=== PATIENT | male | born 1970 | race Caucasian/White ===

== ENCOUNTER → 2018-08-29 10:13 | Outpatient (CLI) | payer OTHER, SELFPAY ==
--- NOTE | 2018-08-29 | DI.NM.S_ITS ---
PROCEDURE: NM BONE 3 PHASE RADIOPHARMACEUTICAL: 21.0 mCi Tc-99m MDP IV. INDICATIONS: STRESS FRACTURE RIGHT FOOT TECHNIQUE: Multiple bone scintigrams were obtained after intravenous injection of Tc-99m MDP, including flow, blood pool, and delayed images centered to the region of interest. COMPARISON: [facility] Outside Film, CR, XR FOOT 3+ VIEWS RIGHT, 08/12/2018, 13:59. FINDINGS: A triple phase bone scan was obtained including flow, blood pool and delayed images of the ankles and feet. There is increased vascular activity in the mid right foot on flow and blood pool images around the bases of the third and fourth metatarsals. Delayed images demonstrate focal increased uptake at the bases of the third and fourth metatarsals. IMPRESSION: There is increased flow, blood pool and delayed activity at the base of the third and fourth metatarsals there is scintigraphic findings are nonspecific. Differential diagnoses include infection and acute stress fractures. Recommend clinical correlation. If clinically indicated, MRI may be helpful. Dictated by: Josie Garcia M.D. on 08/29/2018 at 16:29 Approved by: Josie Garcia M.D. on 08/29/2018 at 17:50
== END ==
PROVIDERS: PCP Family Medicine; Visit Provider Podiatrist
DX: M84.374A Stress fracture, right foot, initial encounter for fracture (principal)
CPT/HCPCS: 78315; A9503

== ENCOUNTER → 2020-07-08 13:37 | Outpatient (CLI) | payer OTHER, SELFPAY ==
[2020-07-08 15:16] LABS: COVID19 -Nasal RAPID Negative (Negative)
== END ==
PROVIDERS: PCP Family Medicine; Visit Provider Physician Assistant
DX: Z20.822 Contact with and (suspected) exposure to COVID-19 (principal)
CPT/HCPCS: 87635

== ENCOUNTER 2020-07-11 06:05 | Day surgery (SDC) | payer OTHER, SELFPAY ==
[2020-07-11] VITALS (20 sets, daily range): BP systolic 129–152; BP diastolic 67–99; PULSE 16–98; RESP 10–18; TEMP 35.8–37.1; O2SAT 91–97; BMI 29.2
[2020-07-11] MEDS: LACTATED RINGERS 1,000 ML 42 ML IV (07:10)
[2020-07-11] MEDS: ACETAMINOPHEN 325 MG TABLET 975 MG PO (07:17)
--- NOTE | 2020-07-11 07:19 | PM.PREOP ---
Pre-operative Note COVID-19 COVID-19 status: Negative Result date/Date tested (Pos, Neg/Pending): 07/08/20 Interval Note History & Physical reviewed/Exam performed by Physician: Yes Changes to H&P: No
[2020-07-11] MEDS: CEFAZOLIN 2 GM/100 ML FROZ.PIGGY IV ×3 (07:49→23:17)
--- NOTE | 2020-07-11 08:00 | DI.RAD.S_ITS ---
PROCEDURE: XR CERVICAL SPINE 2V OR 3V INDICATIONS: C5-6 ACDF TECHNIQUE: 2 intraoperative fluoroscopic view(s) of the cervical spine were acquired. COMPARISON: None. FINDINGS: Under fluoroscopic images of cervical spine shows anterior fusion of C5 and C6 vertebral bodies with intervertebral spacer placement. Straightening of normal cervical lordosis is seen. IMPRESSION: Fluoro guidance was provided intraoperatively for anterior fusion of C5-6 vertebral bodies. Dictated by: Joel Marti M.D. on 07/11/2020 at 9:40 Approved by: Joel Marti M.D. on 07/11/2020 at 9:41
--- NOTE | 2020-07-11 08:13 | SUR.OPER ---
Supine, head on gel donut. Arms padded with gel pads, tucked at sides, towel roll under shoulders. Safety belt at thigh. Legs uncrossed.
[2020-07-11] MEDS: BUPIVACAINE 0.25% W/ EPI (PF) 10 ML VIAL INJ (08:37)
[2020-07-11] MEDS: THROMBIN (RECOMBINANT) 5,000 UNIT VIAL 5000 UNIT TOP (08:38)
[2020-07-11] MEDS: SODIUM CHLORIDE 0.9% 1,000 ML, GENTAMICIN 80 MG IRR (08:38)
--- NOTE | 2020-07-11 08:47 | P.OP_ITS ---
Operative Date/Time/Diagnoses Date of procedure: 07/11/20 Time of procedure: 08:47 Pre-op diagnosis: Cervical stenosis with myelopathy Post-op diagnosis: same Procedure & Clinicians Procedure: C5-6 ACDF with cage Iliac crest bone graft aspirate Use of microscope Same procedure as scheduled: Yes Indications: [age] year old male with intractable pain from a cervical disc herniation. They had failed conservative management and requested operative intervention. Risks and benefits of surgery were discussed and appropriate consents were obtained. Surgeon: Mauri Maldonado Home Energy Inspector: Ann Abbasi Anesthesia Type: General Operative Notes Findings: None Closure Type: primary Specimen(s): none sent Prosthetic devices, grafts, tissues, transplants, or devices: Amber ALFREDITO-C Estimated Blood Loss (mL): 10 Blood products transfused: none Procedure in detail: Patient was brought to the operating room and intubated on the table. A time-out was performed. Preoperative antibiotics were given. The neck was prepped and draped in the standard sterile fashion. Using a skin fold, we made a 3 cm oblique incision on the left side. We used Bovie to go through the platysma and then did a standard anterolateral blunt dissection down to the precervical fascia. Fascia was nicked and elevated up. A marker was placed and x-ray was taken for localization. We then subperiosteally elevated up the longus colli muscles. Self-retaining retractors were placed. [place] pins were placed. We then brought in the microscope. A scalpel used to perform an annulotomy. We then used a combination of pituitaries and curettes and Kerrison to perform a complete anterior diskectomy at C5-6. We used the bur to take down the posterior osteophytes. We took down the PLL and used Kerrison to remove any posterior disc material and osteophytes. At the end we could from the nerve hook cephalad caudally and out the foramen and everything was opened. A small stab incision was made over the left anterior iliac crest. A Jamshidi needle was advanced into the pelvis and 2 mL of bone marrow was aspirated. We then used the trials. We then packed a 14 x 17 x 6 mm ALFREDITO-C cage with Primagen bone graft and the iliac crest harvest. The cage was placed under fluoroscopic guidance. We then placed our two locking plates. The self- retaining retractors and [place] pins were removed and final x-rays taken. The wound was irrigated. There was no bleeding. The carotid was beating nicely. The platysma was closed. The superficial was closed. The skin was closed. A sterile dressing was placed. They were then extubated and brought to recovery room with no complications. Complications: none Post-operative Condition: stable Disposition: PACU Plan for aftercare: Admit overnight. Up with physical therapy. Soft collar for comfort.
[2020-07-11] MEDS: ONDANSETRON 4 MG/2 ML INJ IV (09:22)
[2020-07-11] MEDS: OXYCODONE IR 5 MG TABLET PO ×2 (09:24→23:17)
[2020-07-11] MEDS: OXYCODONE IR 5 MG TABLET 10 MG PO ×3 (10:13→15:36)
[2020-07-11] MEDS: CELECOXIB 200 MG CAPSULE PO ×2 (10:14→20:05)
[2020-07-11] MEDS: ACETAMINOPHEN 325 MG TABLET 650 MG PO (10:14)
[2020-07-11] MEDS: hydrOXYzine pamoate 25 MG CAPSULE PO ×2 (10:14→23:17)
[2020-07-11] MEDS: HYDROMORPHONE 0.5 MG INJ IV ×4 (10:34→16:51)
[2020-07-11] MEDS: CELECOXIB 200 MG CAPSULE 400 MG PO (11:17)
[2020-07-11] MEDS: DOCUSATE 100 MG CAPSULE PO ×2 (11:17→20:05)
[2020-07-11] MEDS: LACTATED RINGERS 1,000 ML 125 ML IV ×2 (11:18→17:45)
--- NOTE | 2020-07-11 14:30 | PT.IIE ---
Current Diagnoses Other spondylosis with myelopathy, cervical region (07/11/20) Spinal stenosis, cervical region (07/11/20) Surgery Performed Operation Date: 07/11/20 07:45 Actual Procedures p C56 anterior cervical discectomy & fusion w. bone graft(Not Applicable) - Mauri Maldonado MD Surgical History (Last Updated 07/08/20 @ 07:39 by Flor Fabian, RN) H/O right knee surgery History of appendectomy History of tonsillectomy Status post right foot surgery Medical History (Last Updated 07/09/20 @ 09:13 by Flor Fabian, RN) ADHD Alcohol dependence Allergic rhinitis Cervical spondylosis with myelopathy Cervical stenosis of spine Decreased libido Depression Fracture Frequent headaches Hypotestosteronism Rotator cuff syndrome Physical Therapy Inpatient Evaluation/Re-Eval M1 PT/OT-IP Prior Functional Status Start: 07/11/20 12:16 Freq: NEEDED Status: Active Protocol: Document 07/11/20 14:28 AW (Rec: 07/11/20 14:38 AW [id number]) Medical Review Prior Functional Status Medical History Reviewed Yes Communication WNL. Pt is an effective verbal communicator. Mobility and Gait Independent without AD. 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 Activities of Daily Living and IADL's Independent with all I/ADL's. 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 Social History Household Members significant other Living Arrangements House Number of Floors (Floors) Two Floors Number of Stairs To Enter/Railing? 5 JESSICA with wide bilateral rails. 2 steps + landing + 12 steps up to bedroom level with left rail ascending. 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 She will be available as needed to assist at discharge. M2 PT-IP Current Condition Start: 07/11/20 12:16 Freq: NEEDED Status: Active Protocol: Document 07/11/20 14:28 AW (Rec: 07/11/20 14:56 AW [id number]) Physical Therapy Current Condition Current Condition Evaluation Date 07/11/20 Treatment Diagnosis cervical myelopathy s/p C5-6 ACDF; impaired mobility and gait Onset Date 07/11/20 Precautions Cervical Spine Precautions Soft Collar for Comfort,No Heavy Lifting,Log Roll M3 PT-IP Subjective Start: 07/11/20 12:16 Freq: NEEDED Status: Active Protocol: Document 07/11/20 14:28 AW (Rec: 07/11/20 14:56 AW [id number]) Subjective Physical Therapy Visit Type Type Initial Evaluation Visit Start Time 14:02 Visit Stop Time 14:28 Total Visit Minutes 26 Notes Pt's partner, Loli, present throughout evaluation. Number of DERMATOLOGY PHYSICIAN Visits 0 Physical Therapy Visit Comments Patient Comments Pt is willing to participate with PT Patient Goals Return to normal activity Therapy Pain Assessment Pain When Pain Assessed During Mobility Pain Present Pain Present Pain Reported Location headache Intensity 3 Scale Used Numeric (0 - 10) Pain Management Techniques Timing of Activity with Medications Neck Intensity 5 Scale Used Numeric (0 - 10) Pain Management Techniques Timing of Activity with Medications M4 PT-IP Mobility and Gait Start: 07/11/20 12:16 Freq: NEEDED Status: Active Protocol: Document 07/11/20 14:28 AW (Rec: 07/11/20 14:56 AW [id number]) PT-Bed Mobility Assessment Rolling Type of Rolling Log Rolling,Roll to Right Supine to Sit Supine to Sit Standby Assistance Scooting Scooting to Edge of Bed Standby Assistance PT-Transfer Assessment Sit to and From Stand Sit to and from Stand Contact Guard Assistance,Use of Upper Extremities Equipment Transfer Assistive Device None,Gait Belt Orthotic/Prosthetic Devices or Brace: Yes Transfers Transfer Destination Bed,Toilet Transfer Technique Stand Step Pivot Transfer Ability Level of Assist Contact Guard Assistance,Use of Upper Extremities Comments Mobility Comments Pt completed log roll to his right side with cues for sequencing SBA. SL to sit required CGA and pt was able to sit EOB with complaint of mild lightheadedness. BP was stable 120's/low 100's. Pt stood from the bed CGA due to initial unsteadiness and ambulated to the sink CGA. He then ambulated to the toilet where he transferred to and from with use of left-sided grab bar. He then ambulated back to the right side of the bed CGA, completing reverse log roll to supine CGA. Gait Assessment Gait Gait Assistance Required: Contact Guard Assist Distance (Feet) 30 Assistive Devices Assistive Device None,Gait Belt Orthotic/Prosthetic Devices or Brace: Yes Gait Deviations General Gait Pattern Antalgic,Decreased Stride Length,Decreased Feet Clearance Factors Limiting Gait Function Factors Limiting Gait Function Pain,Poor Balance,Poor Safety Awareness Comments Gait Comments Pt was slightly impulsive and unsteady on his feet requiring CGA. Anticipate pt will be able to ambulate SBA or IND at next session depending on pain control. Stair Climbing Assessment Comments Stair Climbing Comments Not assessed. PT-Balance Assessment Sitting Balance and Reactions Static Sitting Balance Ability Good Dynamic Sitting Balance Ability Good Standing Balance and Reactions Static Standing Balance Ability Good Dynamic Standing Balance Ability Good Device Used no AD M5 PT-IP Objective Assessments Start: 07/11/20 12:16 Freq: NEEDED Status: Active Protocol: Document 07/11/20 14:28 AW (Rec: 07/11/20 15:20 AW [id number]) Orientation Orientation/Cognition Level of Alertness Alert Orientation Name,Day of Week,Place, Situation Language Function Ability No Deficits Noted Safety Awareness Decreased Safety Awareness Memory Description No Deficits Noted Gross Range of Motion Upper Extremity ROM Assessment Within Functional Limits Lower Extremity ROM Assessment Within Functional Limits Strength Upper Extremity Strength Assessment Within Functional Limits Lower Extremity Strength Assessment Within Functional Limits Comments Strength Comments BUE grossly 4+/5 Sensation Assessment Sensation Gross Sensation WNL Comments Sensation Comments Pt denies numbess in upper extremities M6 PT-IP Treatment Start: 07/11/20 12:16 Freq: NEEDED Status: Active Protocol: Document 07/11/20 14:28 AW (Rec: 07/11/20 15:20 AW [id number]) Physical Therapy Treatment Exercises Exercises Shoulder Flexion,Elbow Flexion /Extension,Wrist ROM,Hand ROM Education Education Provided Precautions,Weight Bearing Status,Post-Op Packet,Safety Brace Education [place],Patient, Caregiver Other Treatments Other Treatment Performed Provided education on role of PT, plan of care, post-op precautions, and handout on swallow concerns. M7 PT-IP Assessment and Plan Start: 07/11/20 12:16 Freq: NEEDED Status: Active Protocol: Document 07/11/20 14:28 AW (Rec: 07/11/20 15:20 AW [id number]) PT Summary Assessment and Plan Potential Rehabilitation Potential Excellent Status of Condition at Evaluation Evolving Summary Impairments Pain,ROM,Strength,Balance, Sensation,Bed Mobility, Transfers,Gait Assessment Summary Willem is a 49 yo man seen for PT evaluation on POD0 following C5-6 ACDF. 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 On evaluation, pt was vaguely lightheaded and limited by neck and headache pain. He required SBA to CGA with all mobilities due to unsteadiness in gait. PT anticipates he will be safe to discharge home with assist once medically cleared and after completing stair training. Goals Bed Mobility Goal Independent Transfer Goal Independent Gait Goal Independent Gait Distance 200 Other Goals - up/down 12 steps with left rail ascending SBA Days to Meet Goals 2 Frequency of Treatment Frequency Of Treatment Twice a Day Treatment Plan Physical Therapy Treatment Plan Bed Mobility Training,Transfer Training,Gait Training, Therapeutic Exercise,Post Op Education,Discharge Planning, Hot or Cold Pack Other Recommendations and Next Treatment review precautions; Focus independent gait; stair training Recommendations To Nursing Amount of Assist Needed Standby Assistance Discharge Recommendations PT Discharge Recommendations Home with Assistance Transportation Needs at Discharge Private Vehicle
--- NOTE | 2020-07-11 15:22 | PC.NURSE ---
Severe pain to neck and headache; PO and IV pain meds, reassessed at moderate 5/10 pain; c/m/s to BLUEs present; drsg to anterior neck c/d/i and iliac crest drsg c/d/i; ls clear; IS 4000; sba to bathroom
--- NOTE | 2020-07-11 16:43 | OT.IPNOTE ---
Attempted to see pt for OT eval, pt states not feeling well and preferring to do OT eval tomorrow morning.
[2020-07-11] MEDS: OXYCODONE IR 5 MG TABLET 15 MG PO (18:34)
[2020-07-11] MEDS: TRAZODONE 50 MG TABLET PO (20:05)
[2020-07-11] MEDS: GABAPENTIN 300 MG CAPSULE PO (20:05)
[2020-07-11] MEDS: SENNOSIDES 8.6 MG TABLET 17.2 MG PO (20:05)
[2020-07-12 00:20] VITALS: BP 136/89; PULSE 90; RESP 16; TEMP 36.9; O2SAT 91
--- NOTE | 2020-07-12 01:29 | PC.NURSE ---
Addendum entered by Liliya Keller R.N. 07/12/20 05:10: Complains of 3/10 headache; medicated with Tylenol. Addendum entered by Liliya Keller R.N. 07/12/20 04:34: Complains that pain is worsening so medicated with additional Oxycodone and provided popscicle. Addendum entered by Liliya Keller R.N. 07/12/20 03:30: Patient able to sleep last couple hours. Now states pain is 4/10 so medicated with Oxycodone + Vistaril but declined ice pack. Original Note: 2334 patient seen and assessed. Is alert and oriented. Breath sounds CTA with RA sat of 91%. HRR. Denies nausea. BT present and is passing flatus. Voiding per urinal; denies dysuria, frequency or urgency. Able to move self in bed. Up to bathroom with SBA. Dressing to anterior neck and left iliac crest CDI. Wearing soft collar for comfort. Complains of 5/10 pain in posterior neck and was medicated with Oxcodone + Vistaril and ice pack applied. States throat is mildly sore but denies difficulty swallowing. Does have limited motion in neck. Refusing SCD's so reminded to ankle wave and patient verbalizes understanding. Fall risk score is moderate and bed alarm is activated.
[2020-07-12] MEDS: hydrOXYzine pamoate 25 MG CAPSULE PO (03:26)
[2020-07-12 03:28] VITALS: BP 132/71; PULSE 89; RESP 16; TEMP 36.7; O2SAT 92
[2020-07-12] MEDS: OXYCODONE IR 5 MG TABLET 10 MG PO ×2 (04:32→08:39)
[2020-07-12] MEDS: ACETAMINOPHEN 325 MG TABLET 650 MG PO (05:07)
[2020-07-12] MEDS: PANTOPRAZOLE 20 MG TABLET PO (06:47)
--- NOTE | 2020-07-12 07:57 | PM.PNPO.1 ---
Subjective Subjective Date Patient Seen: 07/12/20 Time Patient Seen: 07:57 Interval history: He is doing well. Pain is down to about 3/10. Arms feel fine. Exam Vital Signs (past 8 hours): - 07/12/20 00:20 07/12/20 03:28 Temperature 98.5 F 98.1 F Pulse Rate 90 89 Respiratory Rate 16 16 Blood Pressure 136/89 132/71 Pulse Oximetry 91 92 Oxygen Delivery Method Room Air Oxygen Flow Rate 0 Const Orientation: alert and oriented x3 Back/Spine/Pelvis Other: CDI. 5/5 motor both upper extremities PFSH Medical History (Updated 07/09/20 @ 09:13 by Flor Fabian, RN) ADHD Alcohol dependence Allergic rhinitis Cervical spondylosis with myelopathy Cervical stenosis of spine Decreased libido Depression Fracture Frequent headaches Hypotestosteronism Rotator cuff syndrome Surgical History (Updated 07/08/20 @ 07:39 by Flor Fabian, RN) H/O right knee surgery History of appendectomy History of tonsillectomy Status post right foot surgery Social History household members: significant other Smoking Status: Former smoker alcohol intake: former Assessment & Plan Post-op Postoperative Procedures: Procedures Operation Date: 07/11/20 07:45 Actual Procedures Side Surgeon p C56 anterior cervical discectomy & fusion w. bone graft Not Applicable Mauri Maldonado MD He is doing well. Discharge home today. Quality VTE Deep Vein Thrombosis/Pulmonary Embolism Present on Admission: No
--- NOTE | 2020-07-12 08:18 | OT.IP.EVAL ---
Current Diagnoses Other spondylosis with myelopathy, cervical region (07/11/20) Spinal stenosis, cervical region (07/11/20) Surgery Performed Operation Date: 07/11/20 07:45 Actual Procedures p C56 anterior cervical discectomy & fusion w. bone graft(Not Applicable) - Mauri Maldonado MD Past Medical History (Last Updated 07/09/20 @ 09:13 by Flor Fabian, RN) ADHD Alcohol dependence Allergic rhinitis Cervical spondylosis with myelopathy Cervical stenosis of spine Decreased libido Depression Fracture Frequent headaches Hypotestosteronism Rotator cuff syndrome Surgical History (Last Updated 07/08/20 @ 07:39 by Flor Fabian, RN) H/O right knee surgery History of appendectomy History of tonsillectomy Status post right foot surgery Occupational Therapy Inpatient Evaluation/Re-Eval M1 PT/OT-IP Prior Functional Status Start: 07/11/20 12:16 Freq: NEEDED Status: Active Protocol: Document 07/12/20 08:20 CGR (Rec: 07/12/20 08:25 CGR [id number]) Medical Review Prior Functional Status Medical History Reviewed Yes Communication WNL. Pt is an effective verbal communicator. Mobility and Gait Independent without AD. 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 Activities of Daily Living and IADL's Independent with all I/ADL's. 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 Social History Household Members significant other Living Arrangements House Number of Floors (Floors) Two Floors Number of Stairs To Enter/Railing? 5 JESSICA with wide bilateral rails. 2 steps + landing + 12 steps up to bedroom level with left rail ascending. 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 She will be available as needed to assist at discharge. M2 OT-IP Current Condition Start: 07/12/20 08:20 Freq: Status: Active Protocol: Document 07/12/20 08:20 CGR (Rec: 07/12/20 08:25 CGR [id number]) Occupational Therapy Current Condition Current Condition Evaluation Date 07/12/20 Treatment Diagnosis C5-6 ACDF Diagnosis Onset Date 07/11/20 Post Operative Precautions Cervical Spine Precautions Soft Collar for Comfort,No Heavy Lifting,Log Roll M3 OT- IP Subjective and Pain Start: 07/12/20 08:20 Freq: Status: Active Protocol: Document 07/12/20 08:20 CGR (Rec: 07/12/20 08:25 CGR [id number]) OT- Subjective Occupational Therapy Visit Type Type Initial Evaluation Visit Start Time 08:04 Visit Stop Time 08:18 Total Visit Minutes 14 OT Pain Assessment Pain When Pain Assessed At Rest Pain Present Pain Present Denied Pain M4 OT- IP ADL's Start: 07/12/20 08:20 Freq: Status: Active Protocol: Document 07/12/20 08:20 CGR (Rec: 07/12/20 08:25 CGR [id number]) OT LXS-Vnis-Ljoindg General Evaluation Self-Feeding Ability Independent Comments OT Self-Feeding Comments breakfast OT ADL-Grooming General Evaluation Grooming Ability Independent OT ADL-Oral Care Comments Oral Care Comments not performed OT ADL-Dressing General Eval Lower Body Dressing Ability Independent Areas Needing Assistance Socks Comments OT Dressing Comments seated EOB OT ADL-Toileting General Evaluation Toileting Ability Independent Comments OT Toileting Comments simulated seated on toielt OT ADL-Bathing Comments OT Bathing Comments not performed M5 OT- IP IADL's Start: 07/12/20 08:20 Freq: Status: Active Protocol: Document 07/12/20 08:20 CGR (Rec: 07/12/20 08:25 CGR [id number]) OT-Instrumental Activities of Daily Living Deficits IADL Deficits Identified No Deficits Home Safety Awareness Awareness of Need for Assistance at Home Good Awareness Ability to Problem Solve Emergency Able to Problem Solve Situations Medication Management Medication Management No Deficits Identified Money Management Money Management No Deficits Identified Meal Preparation Meal Preparation No Deficits Identified Carpenters Helper Carpenters Helper No Deficits Identified M6 OT- IP Functional Cognition Start: 07/12/20 08:20 Freq: Status: Active Protocol: Document 07/12/20 08:20 CGR (Rec: 07/12/20 08:25 CGR [id number]) Cognitive Factors Limiting Selfcare Function Cognitive Ability Level of Alertness Alert Patient Orientation Name,Age,Birthday,Month,Date, Year,Day of Week,Place, Situation Attention Span Ability Capable of Focused Attention, Capable of Sustained Attention Ability to Follow Commands Able to Follow Multi-Step Commands Memory Description No Deficits Noted Safety Awareness No Deficits Noted Problem Solving Ability No deficits Noted OT- Vision and Hearing OT- Hearing Assessment OT- Hearing Assessment WFL OT- Vision Assessment Visual Acuity WFL Visual Attentiveness WFL Occular Pursuits WFL Visual Convergence WFL M7 OT- IP Mobility and Balance Start: 07/12/20 08:20 Freq: Status: Active Protocol: Document 07/12/20 08:20 CGR (Rec: 07/12/20 08:25 CGR [id number]) OT- Bed Mobility Assessment Rolling Type of Rolling Log Rolling,Roll to Left Level of Assistance Independent Supine to Sit Supine to Sit Assist Independent Scooting Scooting to Edge of Bed Independent OT-Transfer Assessment Sit to and From Stand Sit to and from Stand Independent Transfers Transfer Ability Independent Technique Transfer Destination Bed,Chair,Toilet Transfer Technique Stand Step Pivot Devices Transfer Assistive Devices Gait Belt Comments Mobility Comments mobility around the room with stable IND mobility. OT- Balance Assessment Sitting Balance and Reactions Static Sitting Balance Ability Normal Dynamic Sitting Balance Ability Normal Standing Balance and Reactions Static Standing Balance Ability Normal Dynamic Standing Balance Ability Normal M8 OT- IP Objective Assessments Start: 07/12/20 08:20 Freq: Status: Active Protocol: Document 07/12/20 08:20 CGR (Rec: 07/12/20 08:25 CGR [id number]) OT Gross Range of Motion Upper Extremity Range of Motion Assessment Within Functional Limits OT Strength Upper Extremity Strength Assessment Within Functional Limits OT- Coordination Assessment Upper Extremity Finger to Nose Test Within Functional Limits Finger Tapping Test Within Functional Limits OT-Muscle Tone Assessment Muscle Tone WNL Yes OT Sensation Assessment Edema Edema Absent M9 OT- IP Assessment and Plan Start: 07/12/20 08:20 Freq: Status: Active Protocol: Document 07/12/20 08:20 CGR (Rec: 07/12/20 08:25 CGR [id number]) OT Summary Assessment and Plan Potential Rehabilitation Potential Excellent Analytic Complexity at Evaluation Low Summary Progress Towards Goals Safe For Discharge,Goals Met Assessment Summary Pt presents as a low complexity evaluation s/p admit for C5-6 ACDF. Pt is at his baseline today without complaints. No further OT needs. Safety education and neck precautions reviewed. Frequency of Treatment Frequency Of Treatment Discharge Discharge Recommendations OT Discharge Recommendations Home Transportation Needs at Discharge Private Vehicle
[2020-07-12] MEDS: DOCUSATE 100 MG CAPSULE PO (08:39)
[2020-07-12] MEDS: CELECOXIB 200 MG CAPSULE PO (08:39)
[2020-07-12] MEDS: MULTIVITAMIN 1 TABLET 1 TAB PO (08:39)
[2020-07-12] MEDS: ASCORBIC ACID 500 MG TABLET 2000 MG PO (08:39)
--- NOTE | 2020-07-12 08:39 | CM.DANOTE ---
Discharge Planning/Care Management DCP: assessment: case received, EMR reviewed , d/c order noted. Met now with pt. Introduced self and role. Pt is a 49 year old male who admitted yesterday for a scheduled spinal/cervical surgery. Soft collar is in place. Payer: [employer] Surgeon: Dr. Maldonado PCP: Peri Stack Pt confirmed that he has worked with PT and just now with OT and is cleared for d/c to home. He says his partner Loli will be providing supportive assist and she will be here at about 0930. He hopes to leave [place] this morning as [facility] and they live in [place]. Rn Rosaura is aware. Follow planned with Dr. Maldonado in clinic. CM Discharge Assessment Start: 07/12/20 08:36 Freq: Status: Active Protocol: Document 07/12/20 08:37 ITV (Rec: 07/12/20 08:39 ITV [id number]) Discharge Planning Assessment Advance Directives? No Advance Directives on File No History Provided By Patient,Medical Record Prior Living Arrangements House Household Members significant other Comment Loli Frederick Type of transporation used prior to Drives own vehicle admit Independent with ADL's Yes Is patient alert and oriented? 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 Required No Height 190.5 cm Hearing Ability Normal Visual Impairment Partially Limited Visual Assist Glasses Dentition Type Teeth, Natural Present Barriers to Learning Visual Other Aids No Hx Anesthesia Reactions No Hx Family Anesthesia Reaction No Hx Malignant Hyperthermia No Hx Blood Transfusions No Hx Blood Transfusion Reaction No Anesthesia Review Requested No Acquisition Lead No alcohol intake former Smoking Status Former smoker Tobacco type cigarettes,smokeless tobacco Has it been 2 weeks or less since No patient quit smoking how long ago did patient quit smoking Uses 1 can q4-5 days, former smoker at parties - quit 15 years ago Substance Use Type sedatives Pain Present Denied Pain Musculoskeletal Symptoms Joint Pain,Muscle Spasms,Neck Pain,Numbness,Radiating Pain into Limb History of Falling (Recent or History of No ) Comment R Knee - cortisone injection a few months ago; improved Patient is completely paralyzed or No completely immobile Ambulatory Aid None/bed rest/nurse assist Gait/Transferring Normal/bedrest/immobile Mental Status Oriented to own ability Is patient on oxygen? No Does patient have RAY/SOB No Hx Sleep Apnea No CPAP/BIPAP use not prescribed Suspected Sleep Apnea No Currently Taking a Beta Cesar No Can You Climb a Flight of Stairs Without Yes SOB Hx Chest Pain No Hx SOB No Hx Syncope or Dizziness No Anti-Coagulant Therapy No Has a Help Desk Analyst No Cardiac Testing No Hx Pacemaker/ICD No Pacemaker Rep Required? No Cardiac Clearance Received Not Applicable Diet Type At Home Regular dysphagia No Bladder Pattern Nocturia Urinary Catheter Present No Hx Urinary Self Catheterization No Diabetes No Hx Drug Resistant Organism No Presence of External or Internal Medical Yes: screws right knee Devices Have you had any close contact with No someone diagnosed with COVID-19? Are you experiencing any of these No symptoms symptoms? Evaluation/Screening for possible COVID- Yes 19 infection completed? Comment Covid neg 07/08/20 IH Marital Status Lives With significant other Prior Living Arrangements House Number of Floors (Floors) Two Floors Support System Family,Friend(s),Significant Other Does the Patient Have Assistance After Yes Surgery Patient Discharge Plan Description Home Health Feels Safe in Current Environment Yes Been Physically Hurt or Threatened By a No Person in Current Environment Do you have thoughts of harming yourself None or others? Are you currently considering suicide? No Do you have a plan to hurt yourself or No Plan others? Do You Have Any Spiritual Beliefs That No May Affect Your HC Choices? Do You Have Any Cultural Practices That No May Affect Your HC Choices? Spiritual Referral Buddist Who Can We Speak to About Patient's Care Family & Friends Identifying Code for Release of Patient Declined Information Health Care Proxy/Next of Kin Girlfriend - Loli Frederick Health Care Proxy Emergency Contact Name Girlfriend - Loli Frederick Emergency Contact Advance Directives? No Power of Digital Media Buyer No PAC Instructions Assistance for 24 hours post- op,Do not shave/clip surgical site,Durable medical equipment ,Medications to take/avoid, Nasal antibiotic,No ETOH/ petroleum product on skin DOS, NPO,Ortho class,Post-op transportation,Pre-op antibiotic,Pre-surgical wash, Sensory aids,Sturdy shoes/ comfortable clothes,Do not bring valuables and remove jewelry Comment Encouraged to obtain mupirocin and hibiclens today and start today
[2020-07-12 09:01] VITALS: BP 142/82; PULSE 71; RESP 18; TEMP 36.6; O2SAT 96
--- NOTE | 2020-07-12 10:26 | ST.IPSCREEN ---
Pt seen for ACDF follow-up screen of voice and swallowing. Pt reports a sore throat , but is able to swallow without difficulty. Additionally, he reports his voice was squeaky yesterday, but has returned to near normal today. Written information re: possible voice swallow precautions provided to pt
--- NOTE | 2020-07-12 10:30 | PT.IPTN ---
Current Diagnoses Other spondylosis with myelopathy, cervical region (07/11/20) Spinal stenosis, cervical region (07/11/20) Surgery Performed Operation Date: 07/11/20 07:45 Actual Procedures p C56 anterior cervical discectomy & fusion w. bone graft(Not Applicable) - Mauri Maldonado MD Physical Therapy Treatment Note M2 PT-IP Current Condition Start: 07/11/20 12:16 Freq: NEEDED Status: Discharge Protocol: Document 07/11/20 14:28 AW (Rec: 07/11/20 14:56 AW [id number]) Physical Therapy Current Condition Current Condition Evaluation Date 07/11/20 Treatment Diagnosis cervical myelopathy s/p C5-6 ACDF; impaired mobility and gait Onset Date 07/11/20 Precautions Cervical Spine Precautions Soft Collar for Comfort,No Heavy Lifting,Log Roll M3 PT-IP Subjective Start: 07/11/20 12:16 Freq: NEEDED Status: Discharge Protocol: Document 07/12/20 10:13 KS (Rec: 07/12/20 12:02 KS [id number]) Subjective Physical Therapy Visit Type Type Treatment Note Visit Start Time 10:13 Visit Stop Time 10:30 Total Visit Minutes 17 Number of ELECTRICAL MACHINE BUILDER Visits 1 Physical Therapy Visit Comments Patient Comments Pt is willing to participate with PT Patient Goals Return to normal activity M4 PT-IP Mobility and Gait Start: 07/11/20 12:16 Freq: NEEDED Status: Discharge Protocol: Document 07/12/20 10:13 KS (Rec: 07/12/20 12:02 KS [id number]) PT-Bed Mobility Assessment Scooting Scooting to Edge of Bed Standby Assistance PT-Transfer Assessment Sit to and From Stand Sit to and from Stand Standby Assistance Equipment Transfer Assistive Device None,Gait Belt Orthotic/Prosthetic Devices or Brace: Yes Transfers Transfer Destination Bed,Chair Transfer Ability Level of Assist Standby Assistance Comments Mobility Comments Pt sitting EOB upon arrival from therapy. SBA for sit<> stand. Pt then ambulated ~100 ft to stairs and ascended/ descended 9 total steps w/ step over step pattern and L rail ascending SBA. Pt ambulated additional ~100 ft back to room and sat in chair SBA. Reviewed cervical precautions. Gait Assessment Gait Gait Assistance Required: Standby Assistance,1 Person Assist Distance (Feet) 200 Assistive Devices Assistive Device None,Gait Belt Orthotic/Prosthetic Devices or Brace: Yes Gait Deviations General Gait Pattern Antalgic,Decreased Stride Length,Decreased Feet Clearance Factors Limiting Gait Function Factors Limiting Gait Function Pain,Poor Balance,Poor Safety Awareness Comments Gait Comments Pt ambulated ~200 ft w/o AD SBA no LOB. Stair Climbing Assessment Evaluation Level of Assist On Stairs Standby Assistance,1 Person Assistance Devices Stair Climbing Assistive Devices Left Railing Technique/Endurance Stair Climbing Direction Ascend and Descend Stair Climbing Technique Step Over Step Number of Steps Climbed 9 Stair Climbing Set # Repetitions (reps) 1 Comments Stair Climbing Comments Pt ascended/descended 9 total steps w/ L rail step over step SBA. PT-Balance Assessment Sitting Balance and Reactions Static Sitting Balance Ability Good Dynamic Sitting Balance Ability Good Standing Balance and Reactions Static Standing Balance Ability Good Dynamic Standing Balance Ability Good Device Used no AD M5 PT-IP Objective Assessments Start: 07/11/20 12:16 Freq: NEEDED Status: Discharge Protocol: Document 07/11/20 14:28 AW (Rec: 07/11/20 15:20 AW [id number]) Orientation Orientation/Cognition Level of Alertness Alert Orientation Name,Day of Week,Place, Situation Language Function Ability No Deficits Noted Safety Awareness Decreased Safety Awareness Memory Description No Deficits Noted Gross Range of Motion Upper Extremity ROM Assessment Within Functional Limits Lower Extremity ROM Assessment Within Functional Limits Strength Upper Extremity Strength Assessment Within Functional Limits Lower Extremity Strength Assessment Within Functional Limits Comments Strength Comments BUE grossly 4+/5 Sensation Assessment Sensation Gross Sensation WNL Comments Sensation Comments Pt denies numbess in upper extremities M6 PT-IP Treatment Start: 07/11/20 12:16 Freq: NEEDED Status: Discharge Protocol: Document 07/12/20 10:13 KS (Rec: 07/12/20 12:02 KS [id number]) Physical Therapy Treatment Education Education Provided Precautions,Weight Bearing Status,Post-Op Packet,Safety Other Treatments Other Treatment Performed Reveiwed precautions and soft collar M7 PT-IP Assessment and Plan Start: 07/11/20 12:16 Freq: NEEDED Status: Discharge Protocol: Document 07/12/20 10:13 KS (Rec: 07/12/20 12:02 KS [id number]) PT Summary Assessment and Plan Potential Rehabilitation Potential Excellent Status of Condition at Evaluation Evolving Summary Impairments Pain,ROM,Strength,Balance, Sensation,Bed Mobility, Transfers,Gait Progress Towards Goals Progressing Toward Goals Assessment Summary Pt SBA for all mobility, transfers, ambulation, and stairs. Able to tolerate ~200 ft ambulation w/o AD and ascended/descended 9 steps w/ L rail step over step. Patient may go home when medically stable w/ to assist as necessary. Goals Bed Mobility Goal Independent Transfer Goal Independent Gait Goal Independent Gait Distance 200 Other Goals - up/down 12 steps with left rail ascending SBA Days to Meet Goals 2 Frequency of Treatment Frequency Of Treatment Twice a Day Treatment Plan Physical Therapy Treatment Plan Bed Mobility Training,Transfer Training,Gait Training, Therapeutic Exercise,Post Op Education,Discharge Planning, Hot or Cold Pack Other Recommendations and Next Treatment review precautions; Focus independent gait; stair training Recommendations To Nursing Amount of Assist Needed Standby Assistance Discharge Recommendations PT Discharge Recommendations Home with Assistance Transportation Needs at Discharge Private Vehicle
--- NOTE | 2020-07-12 10:53 | PC.NURSE ---
Day shift: Pt left unit w/ his in WC and taken to car by DARRON Wallis at approx 1100. Paperwork signed and all questions answered. Soft collar in place and tolerated. dressing remains CDI. Pt has all personal belongings. Pt also has MD scripts. Pt instructed to call [facility] to ask if ok to take Tylenol and/or ibuprofen so he can stop or take less of the oxycodone. Pt in good spirits and happy to be going home today.
== END 2020-07-12 10:58 | disposition home or self-care (01) ==
LOC: OR 06:07 → AC 06:07
PROVIDERS: PCP Physician Assistant Medical; Referring Provider Physician Assistant Medical; Visit Provider Orthopaedic Surgery
PROC: (CPT 22551; principal; 2020-07-11 07:45)
DX: M48.02 Spinal stenosis, cervical region (principal); M47.12 Other spondylosis with myelopathy, cervical region; K21.9 Gastro-esophageal reflux disease without esophagitis
CPT/HCPCS: 22551; 22853; 20939; 72040; 76000; 82962; 97116; 97161; 97165; C1776; J0330; J0690; J1100; J1170; J2250; J2405; J2704; J3010

== ENCOUNTER → 2022-07-24 16:49 | Outpatient (CLI) | payer OTHER, SELFPAY ==
[2020-07-11 06:43] VITALS: BMI 29.2
--- NOTE | 2022-07-24 16:52 | DI.MRI.S_ITS ---
PROCEDURE: MR CERVICAL SPINE WO CON INDICATIONS: Radiculopathy, cervical region TECHNIQUE: Noncontrast sagittal T1 spin echo and T2 fast spin echo, sagittal STIR, foraminal oblique sagittal T2 fast spin echo, and axial gradient echo or T2 fast spin echo through the cervical spine. COMPARISON: [facility], [facility], XR CERVICAL SPINE WITH FLEXION EXTENSION, 07/10/2022, 7:40. FINDINGS: Image quality: Excellent. Alignment and Curvature: Reversal normal cervical lordosis Bone Marrow: Low profile anterior cervical hardware associated with interbody fusion at C5-6 Spinal Cord: Visualized spinal cord has normal size and signal. No cerebellar tonsillar herniation. Paraspinous Soft Tissues: No paravertebral masses. Prevertebral soft tissues are normal in thickness. C2-C3: Normal appearance. C3-C4: Disc height is maintained. Posterior disc osteophyte complex results in mild central and no foraminal stenosis C4-C5: Mild disc space narrowing with posterior disc osteophyte complex present. Mild to moderate central stenosis. Moderate left and mild right foraminal stenosis C5-C6: Discectomy and fusion. Posterior osteophyte results in [id number] central stenosis asymmetric to the left. Mild left and right foraminal stenosis C6-C7: Disc space is maintained. Small posterior disc osteophyte complex with mild central and no foraminal stenosis. C7-T1: Normal appearance. IMPRESSION: Multilevel degenerative disc disease and arthropathy results in varying degrees of central and foraminal stenosis including mild to moderate central and moderate left foraminal stenosis C4-5. Discectomy and fusion C5-6 Approved by: Arsenio Last M.D. on 07/24/2022 at 18:05
== END ==
PROVIDERS: PCP Physician Assistant Medical; Referring Provider Physician Assistant Medical; Visit Provider Physician Assistant Medical
DX: M50.11 Cervical disc disorder with radiculopathy, high cervical region (principal); M47.22 Other spondylosis with radiculopathy, cervical region; M48.02 Spinal stenosis, cervical region; Z98.1 Arthrodesis status
CPT/HCPCS: 72141